=== PATIENT | female | born 1970 | race Two or more races ===

== ENCOUNTER 2021-09-10 15:26 | Emergency (ER) | payer SELFPAY ==
[~2021-09-10] VITALS: Ht 160 cm; Wt 175.0 kg
[2021-09-10] MEDS ORDERED: LIDOCAINE 1% Multi-Dose 20 ML VIAL. INJ ONE (16:15)
[2021-09-10] MEDS ORDERED: TETANUS AND DIPHTHERIA TOX/PF 0.5 ML DISP.SYRIN. VAX IM ONE (16:15)
--- NOTE | 2021-09-10 16:41 | PHYS DOC ---
Past Medical History Smoking Status: Never Smoker Drug Use: None (THAIGO PALACIOS) General Adult EDM: Chief Complaint: ANIMAL BITE HPI: HPI: Patient is a 51 year old female who presents with dog bite to her left heel. Patient states the dog is a pit bull that belongs to one of her neighbors. The dog is up-to-date on all vaccinations and is not typically aggressive. Patient reports 1 laceration to the medial aspect of the posterior heel. She has no other complaints at this time. (THIAGO PALACIOS) Review of Systems: Review of Systems: ROS negative or noncontributory except as mentioned in HPI. (THIAGO PALACIOS) Heart Score: C/O Chest Pain: No (THIAGO PALACIOS) Current Medications: Current Medications Medications (Trade) Dose Ordered Sig/Henrique Route PRN Reason Start Time Stop Time Status Last Admin Dose Admin Lidocaine HCl (Lidocaine 1% 20ml Vial) 20 ml 1X ONCE INJ 09/10/21 16:15 09/10/21 16:18 DC 09/10/21 16:15 Tetanus/ Diphtheria Toxoids (Tenivac Syringe) 0.5 ml ONCE ONCE VAX IM 09/10/21 16:15 09/10/21 16:18 DC 09/10/21 17:03 (THIAGO PALACIOS) Allergies: Allergies: Allergies Coded Allergies Type Severity Reaction Last Updated Verified No Known Drug Allergies 09/10/21 No (THIAGO PALACIOS) Physical Exam: PE: Constitutional: Well developed, well nourished, no acute distress, non-toxic appearance. HENT: Normocephalic, atraumatic, bilateral external ears normal, nose normal. Eyes: EOMI, conjunctiva normal, no discharge. Neck: Normal range of motion, no stridor. Skin: 2 cm horizontal laceration noted to medial aspect of posterior left heel. Skin otherwise warm, dry, no erythema, no rash. Extremities: No tenderness, no cyanosis, no clubbing, ROM intact, no edema. Neurologic: Alert and oriented x4, no focal deficits noted. (THIAGO PALACIOS) Course & Med Decision Making: Course & Med Decision Making Pertinent Labs and Imaging studies reviewed. (See chart for details) Patient is a 51-year-old female who presents with the emergency room with a dog bite. [facility] has been informed of the incident. Dog is up-to-date on vaccinations. Wound is about 2 cm long and 7 mm wide. Laceration will be tacked for loose approximation. Patient will be sent home with 10 days of Augmentin. Patient questions were answered. Return precautions were provided. Patient is advised to follow-up with her primary care doctor in 2 days for wound check. Sutures can be removed in 7-10 days. Patient understands and is agreeable to discharge plan. (THIAGO PALACIOS) Dragon Disclaimer: Dragcyndy Disclaimer: This electronic medical record was generated, in whole or in part, using a voice recognition dictation system. (THIAGO PALACIOS) Laceration Repair Lac Repair Indication: Laceration left heel Procedure: The patient was placed in the appropriate position and anesthesia around the laceration was 1% lidocaine. The area was then irrigated with sterile saline and cleansed with Betadine solution. The laceration was tacked closed and loosely approximated with 2 simple interrupted sutures. The wound area was then dressed with nonadhesive gauze and Coban wrap. Total repaired wound length: 2 cm. Other Items: The patient tolerated the procedure very well. Complications: No complications. (THIAGO PALACIOS) Departure Departure Impression: Primary Impression: Dog bite of left foot Qualified Codes: S91.352A - Open bite, left foot, initial encounter; W54.0XXA - Bitten by dog, initial encounter Disposition: HOME / SELF CARE / HOMELESS Condition: IMPROVED Referrals: NON,STAFF (PCP) Patient Instructions: Animal Bite, [id number], Sutured Wound Care, [id number] Additional Instructions: INSTRUCCIONES GENERALES DE LES DEL DEPARTAMENTO DE EMERGENCIA [place] por venir pradip al Departamento de Emergencias (ED) de [facility] y confiarnos raya atencin. Confiamos en que haya tenido jean experiencia positiva en nuestro Departamento de Emergencias. Si desea hablar con la gerencia del departamento, puede llamar al director al . XIMENA INSTRUCCIONES DE SEGUIMIENTO SON LAS SIGUIENTES: 1. Wm un seguimiento con raya mdico de atencin primaria en 2-3 cross. Si no tiene un mdico de cabecera, solicite jean lista de recursos de mdicos o clnicas que puedan ayudarlo con la atencin de seguimiento. 2. El proveedor de emergencia oneil interpretado ximena estudios de imgenes, si se ordenaron. El especialista en imgenes de radiologa tambin los kyler. Si hay un cambio en los hallazgos, se le notificar en 48 horas cuando sea posible. 3. Si se oneil realizado jean prueba de laboratorio o un cultivo, se revisarn ximena resultados y se le notificar si necesita un cambio en el tratamiento. 4. Siga las instrucciones verbalizadas y consulte las copias impresas si es necesario. INSTRUCCIONES E INFORMACIN ADICIONALES: 1. Raya atencin hoy oneil sido supervisada por un mdico especialmente capacitado en atencin de emergencia. Muchos problemas requieren ms de jean evaluacin para un diagnstico y tratamiento completos. Le recomendamos que programe raya iqra de seguimiento segn lo recomendado para garantizar el tratamiento completo de raya enfermedad o lesin. Si no puede obtener atencin de seguimiento y contina teniendo un problema, o si raya condicin empeora, le recomendamos que regrese al servicio de urgencias. 2. No podemos determinar de manera sears raya condicin por telfono ni podemos rl consejos mdicos slidos por telfono. Por estas razones de seguridad, si llama para pedir consejo mdico, le pediremos que vaya al servicio de urgencias para jean evaluacin adicional. 3. Si tiene alguna pregunta sobre estas instrucciones de les, llame al ED al . INFORMACIN DE SEGURIDAD: En inters de la seguridad, el bienestar y la prevencin de lesiones; le recomendamos que use raya cinturn de seguridad, si fuma; bastante fumador, y alentamos a la [place] a usar un deangelo protector para andar en bicicleta y otros eventos deportivos que presenten un mayor riesgo de lesiones en la cookie. SI XIMENA SNTOMAS EMPEORAN O SE DESARROLLAN NUEVOS SNTOMAS, O SI TIENE PREOCUPACIONES SOBRE RAYA CONDICIN; O SI RAYA CONDICIN EMPEORA MIENTRAS ESPERA RAYA IQRA DE SEGUIMIENTO; PNGASE EN CONTACTO CON RAYA MDICO DE ATENCIN PRIMARIA, EL MDICO CUYO NOMBRE Y NMERO LE DIERON, O REGRESE AL ED INMEDIATAMENTE. Scripts Amoxicillin/Potassium Clav (AMOX TR-K CLV 875-125 MG TAB) 1 Each Tablet 1 TAB PO BID, #20 TAB Prov: THIAGO PALACIOS 09/10/21 Attending Signature I have participated in the care of this patient and I have reviewed and agree with all pertinent clinical information above including history, exam, and recommendations. (GLADYS CROSS DO) THIAGO PALACIOS Sep 10, 2021 16:41 GLADYS CROSS DO Sep 10, 2021 17:59
[2021-09-10] MEDS ORDERED: AMOX1TAB11 PO (16:56)
[2021-09-10] MEDS ORDERED: KETOROLAC 60 MG/2 ML VIAL. IM ONE (17:00)
[2021-09-10 17:18] VITALS: BP 130/76
== END 2021-09-10 17:18 | disposition home or self-care (01) ==
LOC: ER 15:26
DX: S91.312A Laceration without foreign body, left foot, initial encounter (principal); W54.0XXA Bitten by dog, initial encounter; Y93.89 Activity, other specified; Y92.89 Other specified places as the place of occurrence of the external cause; Y99.8 Other external cause status
CPT/HCPCS: 12001; 90471; 90714; 99283; J3490